=== PATIENT | male | born 2000 | race Caucasian/White ===

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

== ENCOUNTER 2022-05-28 09:31 | Emergency (ER) | payer OTHER, SELFPAY ==
[2022-05-28 11:05] VITALS: BP 141/90; PULSE 101; RESP 18; TEMP 36.8; O2SAT 98; BMI 26.1
--- NOTE | 2022-05-28 11:13 | EXP.UTC ---
Discharge Plan Disposition Patient Disposition: Home, Self-Care Condition: Good Prescriptions Prescriptions: New benzonatate 100 mg capsule 100 mg PO TID PRN (Reason: cough) Qty: 30 0RF azithromycin [Zithromax Z-Rip] 250 mg tablet See Rx Instructions .ROUTE .COMPLEX 5 Days Qty: 6 0RF Rx Instructions: For 250 mg dose pack: take 500 mg today (day 1), then 250 mg for 4 days (days 2-5) prednisone [prednisone] 20 mg tablet 20 mg PO BID 5 Days Qty: 10 0RF albuterol sulfate [Proventil HFA] 90 mcg/actuation HFA aerosol inhaler 1 inh inhalation Q6H PRN (Reason: shortness of breath or wheezing) Qty: 8.5 0RF Referrals Follow up/Referrals: Sandra Fernandez APRN [Primary Care Provider] - See instructions Activity Restrictions/Add. Instructions Additional Instructions/Restrictions: Start antibiotic today. Be sure to complete entire prescription even if feeling better Monitor temp. Tylenol every 4 hours as needed and / or ibuprofen every 6 hours as needed ( As long as your primary care physician has told you that it ok to take both. For fever/aches/pains ER if no less than 101 despite Tylenol or Motrin Humidifier/vaporizer or hot steamy shower Inhaler every 4-6 hours as needed like we discussed. If unsure how to use it, ask pharmacist to demonstrate how. Should help open airways and improve cough, wheezing, and shortness of breath *Tessalon Perles will not cause drowsiness but use at bedtime to help stop cough so that you may get some rest. *Start steroid today. Helps with inflammation therefore, cough and wheezing. Follow directions on the package. Reviewed side effects. Patient reports taking them before. Follow up IMMEDIATELY for new or worsening of symptoms OR no noticeable improvement over the next 48-72 hours. 911 immediately for any life threatening symptoms such as chest pain or difficulty breathing Clinical Impressions Clinical Impression: Bronchitis Sinusitis Qualifiers: Sinusitis location: unspecified location Chronicity: unspecified Qualified Code(s): J32.9 - Chronic sinusitis, unspecified Stand Alone Forms Stand Alone Forms: Work/School Release Instructions Patient Instructions: DI for Sinusitis, Sinusitis, Acute Bronchitis Discharge ED Provider: Emy Rosado [facility] HPI General Stated complaint: Cough, SOA Time Seen by Provider: 05/28/22 11:13 History of Present Illness Provider Complaint: Patient states that he has been having cough, sinus congestion and pressure, scratchy chest and felt SOA at times after coughing episode state that he is not coughing anything up but he has pressure behind his eyes and feels like he has drainage in the back of his throat Related Data Previous Rx's Medication Instructions Recorded albuterol sulfate 90 mcg/actuation 1 inh inhalation Q6H PRN shortness 05/28/22 aerosol inhaler (Proventil HFA) of breath or wheezing #8.5 grams azithromycin 250 mg tablet See Rx Instructions PO .COMPLEX 5 05/28/22 (Zithromax Z-Rip) days #6 tabs benzonatate 100 mg capsule 100 mg PO TID PRN cough #30 caps 05/28/22 prednisone 20 mg tablet 20 mg PO BID 5 days #10 tabs 05/28/22 Allergies Allergy/AdvReac Type Severity Reaction Status Date / Time cefdinir [CEFDINIR] Allergy Mild Verified 05/28/22 11:17 PFSH PFSH Medical History (Updated 05/28/22 @ 11:23 by Emy Rosado APRN) Anxiety Asthma Depression Social History (Updated 05/28/22 @ 11:17 by Airam Swanson RN) Smoking Status: Current every day smoker alcohol intake: never substance use type: marijuana (recently has been daily) current occupational status: employed Travel in the last 8 weeks: None number of children: 0 ROS Obtained: Yes All systems reviewed & no additional complaints except as documented and Yes Systems reviewed as appropriate & no additional complaints except as documented Constitutional Constitutional: Reports system rev
[2022-05-28 11:28] LABS: UTC Influenza A Antigen Negative (Negative); UTC Influenza B Antigen Negative (Negative)
[2022-05-28 11:32] VITALS: BP 141/90; PULSE 101; RESP 18; TEMP 36.8; O2SAT 98
== END 2022-05-28 11:37 | disposition home or self-care (01) ==
PROVIDERS: Emergency Provider Nurse Practitioner; PCP Nurse Practitioner Family
DX: J40 Bronchitis, not specified as acute or chronic (principal); J32.9 Chronic sinusitis, unspecified
CPT/HCPCS: 87804; 99212; C9803; G0463; U0003; U0005

== ENCOUNTER 2022-06-02 09:56 | Emergency (ER) | payer OTHER, SELFPAY ==
[2022-06-02 09:56] VITALS: BP 146/93; PULSE 88; RESP 16; TEMP 36.8; O2SAT 99; BMI 25.8
[2022-06-02 10:13] VITALS: BP 146/93; PULSE 73; O2SAT 98
[2022-06-02 10:30] VITALS: BP 155/101; PULSE 85; O2SAT 99
--- NOTE | 2022-06-02 10:34 | CT_ITS ---
FINAL REPORT CLINICAL HISTORY: headache, vomiting FINDINGS: Axial images of the head were obtained without contrast. Coronal reformatted images were also obtained.This study was performed with techniques to keep radiation doses as low as reasonably achievable (ALARA). Individualized dose reduction techniques using automated exposure control or adjustment of mA and/or kV according to the patient's size were employed. There is no evidence of intracranial hemorrhage or mass. The ventricular size is within normal limits. There is no evidence of shift of the midline structures. No abnormal extra axial fluid collection is identified. No skull abnormality is seen on the bone window images. There is mucosal thickening of the maxillary sinuses and ethmoid air cells. IMPRESSION: No acute intracranial abnormality. Sinusitis as above. Reviewed, Interpreted and Dictated by Vikas Wade III, MD Transcribed by Payal Pennington Authenticated and [facility]
--- NOTE | 2022-06-02 10:36 | HMH.EDGENADL ---
Discharge Plan Disposition Patient Disposition: Home, Self-Care Condition: Good Prescriptions Prescriptions: New amoxicillin-pot clavulanate [Augmentin] 500-125 mg tablet 1 tab PO Q8H Qty: 30 0RF ondansetron 4 mg tablet,disintegrating 4 mg PO Q8H PRN (Reason: nausea and vomiting) Qty: 10 0RF No Action benzonatate 100 mg capsule 100 mg PO TID PRN (Reason: cough) Qty: 30 0RF azithromycin [Zithromax Z-Rip] 250 mg tablet See Rx Instructions .ROUTE .COMPLEX 5 Days Qty: 6 0RF Rx Instructions: For 250 mg dose pack: take 500 mg today (day 1), then 250 mg for 4 days (days 2-5) prednisone [prednisone] 20 mg tablet 20 mg PO BID 5 Days Qty: 10 0RF albuterol sulfate [Proventil HFA] 90 mcg/actuation HFA aerosol inhaler 1 inh inhalation Q6H PRN (Reason: shortness of breath or wheezing) Qty: 8.5 0RF Referrals Follow up/Referrals: Clarence Maynard MD [Primary Care Provider] - See instructions Activity Restrictions/Add. Instructions Additional Instructions/Restrictions: Augmentin as prescribed. Zofran as needed for nausea. Return to the emergency department if severe headache or vomiting recurs. Additional instructions for HEADACHE: See your physician as soon as possible for further evaluation. Return immediately if worsening headache, vomiting, problems with vision or speech, fever, numbness or weakness of the extremities, neck pain or stiffness. Clinical Impressions Clinical Impression: Sinusitis, Headache, Vomiting Instructions Patient Instructions: DI for Nausea -- Adult, DI for Sinusitis, DI for Headache Discharge ED Provider: Matthias Galeana General Adult HPI General Chief complaint: Nausea/Vomiting/Diarrhea Stated complaint: LOWRY, vomiting Time Seen by Provider: 06/02/22 10:30 Mode of Arrival: Ambulatory Limitations: No Limitations Description of Symptoms (Recalled from ER Triage Doc. by RN): pt advises he woke up this am with nausea, vomiting, headache, body aches. History of Present Illness HPI narrative: Patient states that shortly after he awakened this morning he had onset of a headache on the top of his head. Multiple episodes of vomiting. Denies diarrhea or abdominal pain. Denies fever. Denies visual disturbance or numbness or weakness. Denies neck pain or stiffness. No history of severe headaches, no history of migraines. Recently seen at the urgent treatment center for bronchitis. States that yesterday he felt great, symptoms had apparently resolved and when he went to bed last night he felt good. Related Data Previous Rx's Medication Instructions Recorded albuterol sulfate 90 mcg/actuation 1 inh inhalation Q6H PRN shortness 05/28/22 aerosol inhaler (Proventil HFA) of breath or wheezing #8.5 grams azithromycin 250 mg tablet See Rx Instructions PO .COMPLEX 5 05/28/22 (Zithromax Z-Rip) days #6 tabs benzonatate 100 mg capsule 100 mg PO TID PRN cough #30 caps 05/28/22 prednisone 20 mg tablet 20 mg PO BID 5 days #10 tabs 05/28/22 amoxicillin 500 mg-potassium 1 tab PO Q8H #30 tabs 06/02/22 clavulanate 125 mg tablet (Augmentin) ondansetron 4 mg disintegrating 4 mg PO Q8H PRN nausea and 06/02/22 tablet vomiting #10 tabs Allergies Allergy/AdvReac Type Severity Reaction Status Date / Time cefdinir [CEFDINIR] Allergy Mild Verified 06/02/22 10:23 [facility] [place] Medical History (Updated 06/02/22 @ 12:40 by Matthias Galeana MD) Anxiety Asthma Depression Social History Smoking Status: Current every day smoker alcohol intake: never substance use type: marijuana (recently has been daily) current occupational status: employed Travel in the last 8 weeks: None number of children: 0 ROS Obtained: Yes Systems reviewed as appropriate & no additional complaints except as documented Constitutional Constitutional: Denies fever(s), Reports headache(s) and Denies weakness ENT Ears, Nose, Mout
[2022-06-02 11:00] VITALS: BP 130/87; PULSE 79; O2SAT 95
[2022-06-02 11:03] LABS: Basophils # 0.1 K/mm3 (0-0.2); Basophils % 1.1 % (0.1-2.0); Eosinophils # 0.1 K/mm3 (0.0-0.4); Eosinophils % 0.9 % (0.1-12.0); Hematocrit 50.3 % (42.0-52.0); Hemoglobin 16.9 g/dL (14.1-18.0); Lymphocytes # 1.1 K/mm3 (0.7-4.5); Lymphocytes % 8.1 % (10-50); Mean Corpuscular HGB Conc 33.7 g/dL (31.8-35.4); Mean Corpuscular Hemoglobin 28.9 pg (27.0-31.2); Mean Corpuscular Volume 85.7 fl (80-94); Mean Platelet Volume 7.2 fl (7.4-10.4); Monocytes # 0.5 K/mm3 (0.1-1.0); Neutrophils # 11.3 K/mm3 (1.8-7.8); Neutrophils % 85.9 % (37.0-80.0); Platelet Count 391 K/mm3 (142-424); Red Blood Count 5.87 M/mm3 (4.60-6.20); Red Cell Distribution Width 13.1 % (11.5-17.5); White Blood Count 13.1 K/mm3 (4.8-10.8)
[2022-06-02 11:05] LABS: MANUAL DIFFERENTIAL MANUAL DIFFERENTIAL (MANUAL DIFF)
[2022-06-02 11:06] LABS: Chloride 100 mmol/L (98-107); Potassium 4.1 mmoL/L (3.5-5.1); Sodium 141 mmol/L (136-145)
[2022-06-02 11:08] LABS: Blood Urea Nitrogen 10 mg/dl (9-20); Creatinine Clearance Estimated 140 mL/min (50-200); Estimated Glomerular Filt Rate 106 ml/min (>60); GFR (African American) 128 ML/MIN (>60)
[2022-06-02 11:09] LABS: Alanine Aminotransferase 26 U/L (12-78); Albumin Level 4.4 g/dl (3.5-5.0); Albumin/Globulin Ratio 1.4 (1.1-1.8); Alkaline Phosphatase 90 U/L (38-126); Anion Gap 16.1 mEq/L (5-15); Aspartate Amino Transferase 37 U/L (17-59); Bilirubin,Total 0.6 mg/dl (0.2-1.3); Calcium 9.8 mg/dl (8.4-10.2); Carbon Dioxide 29 mmol/L (22.0-30.0); Globulin 3.2 g/dL (1.3-3.2); Glucose 104 mg/dl (74-100); Total Protein,Serum 7.6 g/dl (6.3-8.2)
[2022-06-02 11:20] LABS: Eosinophils % 1 % (0-3); Lymphocytes % 11 % (10-50); Monocytes % 2 % (2-9); Neutrophils % 85 % (42-76); Platelet Estimate Normal; RBC Morphology Normal; Total Cells Counted 100
--- NOTE | 2022-06-02 11:30 | PC.NURSE ---
Rounded on pt at this time and swab obtained. Pt advised the medicine had helped some. No new needs at this time.
[2022-06-02 11:37] LABS: Coronavirus 19, PCR Not Detected (NotDetected); Influenza A, PCR Not Detected (NotDetected); Influenza B, PCR Not Detected (NotDetected)
--- NOTE | 2022-06-02 11:57 | INFXCTL.NOTE ---
contacted rad to check on status of CT result, staff states there is one scan ahead of this pts to be read.
[2022-06-02 12:49] VITALS: BP 128/70; PULSE 76; RESP 16; TEMP 36.7; O2SAT 98
== END 2022-06-02 12:50 | disposition home or self-care (01) ==
PROVIDERS: Emergency Provider Emergency Medicine; PCP Internal Medicine Adolescent Medicine
DX: R06.02 Shortness of breath (principal); R05.9 Cough, unspecified; R51.9 Headache, unspecified; R11.2 Nausea with vomiting, unspecified; R19.7 Diarrhea, unspecified; Z20.822 Contact with and (suspected) exposure to COVID-19; F32.A Depression, unspecified; F41.9 Anxiety disorder, unspecified; F17.200 Nicotine dependence, unspecified, uncomplicated; Z79.51 Long term (current) use of inhaled steroids; Z79.52 Long term (current) use of systemic steroids; Z79.899 Other long term (current) drug therapy; Z88.8 Allergy status to other drugs, medicaments and biological substances
CPT/HCPCS: 70450; 80053; 85007; 85025; 96361; 96374; 96375; 99285; C9803; U0003; U0005

== ENCOUNTER 2022-07-10 01:28 | Emergency (ER) | payer OTHER, SELFPAY ==
[2022-07-10 01:28] VITALS: BP 140/90; PULSE 85; RESP 18; TEMP 36.8; O2SAT 99; BMI 25.8
--- NOTE | 2022-07-10 01:43 | HMH.EDABDPAI ---
Discharge Plan Disposition Patient Disposition: Home, Self-Care Condition: Good Prescriptions Prescriptions: New ondansetron 4 mg tablet,disintegrating 4 mg PO Q8H PRN (Reason: nausea and vomiting) 1 Days Qty: 30 0RF cefdinir 300 mg capsule 300 mg PO BID 10 Days Qty: 20 0RF No Action benzonatate 100 mg capsule 100 mg PO TID PRN (Reason: cough) Qty: 30 0RF azithromycin [Zithromax Z-Rip] 250 mg tablet See Rx Instructions .ROUTE .COMPLEX 5 Days Qty: 6 0RF Rx Instructions: For 250 mg dose pack: take 500 mg today (day 1), then 250 mg for 4 days (days 2-5) prednisone [prednisone] 20 mg tablet 20 mg PO BID 5 Days Qty: 10 0RF albuterol sulfate [Proventil HFA] 90 mcg/actuation HFA aerosol inhaler 1 inh inhalation Q6H PRN (Reason: shortness of breath or wheezing) Qty: 8.5 0RF amoxicillin-pot clavulanate [Augmentin] 500-125 mg tablet 1 tab PO Q8H Qty: 30 0RF ondansetron 4 mg tablet,disintegrating 4 mg PO Q8H PRN (Reason: nausea and vomiting) Qty: 10 0RF Referrals Follow up/Referrals: Clarence Maynard MD [Primary Care Provider] - See instructions Activity Restrictions/Add. Instructions Additional Instructions/Restrictions: Please follow up with your primary care physician in 2-3 days for re-evaluation. You are being treated with antibiotics for possible UTI, however symptoms are likely secondary to constipation caused by viral gastroenteritis. Please take zofran as prescribed. Please drink plenty of water. May also use over the counter stool softeners until you have normal bowel movement. If abdominal distension, inability to have bowel movement, worsening pain, or any other concerns return to ED. If symptoms don't improve or worsen may require CT scan. Clinical Impressions Clinical Impression: Gastroenteritis and colitis, viral, Constipation Instructions Patient Instructions: Constipation, Viral Gastroenteritis Print Language Print Language: German Discharge ED Provider: Prisca Estevez Abdominal Pain HPI General Stated Complaint: lower abdominal pain Time Seen by Provider: 07/10/22 01:44 Mode of Arrival: Ambulatory Source of Information: Patient Limitations: No Limitations History of Present Illness HPI narrative: Mr. Moraels is a 21 yo male presenting to the ED for generalized abdominal pain and diarrhea. Patient reports symptoms onset 2d prior. Also reports non bloody diarrhea on D1 which has since resolved. Now he reports constipation and no bowel movement since yesterday. Still passing flatulence. Denies any bloody stools. No dysuria, hematuria or urgency. No emesis, but reports nausea. No penile or scrotal pain. No cough, fevers or other infectious symptoms. No sick contacts. MD complaint: abdominal pain Onset (ago): day(s) Consistency: constant Location: periumbilical Severity: moderate Severity scale (1-10): 7 Quality: cramping Migration to: no migration Relieving factors: nothing Exacerbating factors: nothing Associated symptoms: nausea and diarrhea Related Data Previous Rx's Medication Instructions Recorded albuterol sulfate 90 mcg/actuation 1 inh inhalation Q6H PRN shortness 05/28/22 aerosol inhaler (Proventil HFA) of breath or wheezing #8.5 grams azithromycin 250 mg tablet See Rx Instructions PO .COMPLEX 5 05/28/22 (Zithromax Z-Rip) days #6 tabs benzonatate 100 mg capsule 100 mg PO TID PRN cough #30 caps 05/28/22 prednisone 20 mg tablet 20 mg PO BID 5 days #10 tabs 05/28/22 amoxicillin 500 mg-potassium 1 tab PO Q8H #30 tabs 06/02/22 clavulanate 125 mg tablet (Augmentin) ondansetron 4 mg disintegrating 4 mg PO Q8H PRN nausea and 06/02/22 tablet vomiting #10 tabs cefdinir 300 mg capsule 300 mg PO BID 10 days #20 caps 07/10/22 ondansetron 4 mg disintegrating 4 mg PO Q8H PRN nausea and 07/10/22 tablet vomiting 24 hours #30 tabs Allergies Allergy/AdvReac Type Severity Reaction Status Date / Time cefdinir [CEFDINIR] Allergy Mild Verified
[2022-07-10 01:47] LABS: Microscopic, Urine URINE MICROSCOPIC (MICROSCOPIC)
[2022-07-10 01:53] LABS: Appearance,Urine CLEAR (Clear); Blood, Urine 1+ (Negative); Color,Urine YELLOW (Yellow); Glucose,Urine (UA) Negative (Negative); Ketones,Urine Negative (Negative); Leukocyte Esterase,Urine Negative (Negative); Nitrate,Urine Negative (Negative); PH,Urine 5.5 (5.0-8.5); Protein,Urine TRACE (Negative); Specific Gravity, Urine >= 1.030 (1.005-1.030)
[2022-07-10 02:00] LABS: Bilirubin,Urine Negative (Negative)
[2022-07-10 02:03] LABS: Alanine Aminotransferase 24 U/L (12-78); Albumin Level 4.9 g/dl (3.5-5.0); Albumin/Globulin Ratio 1.5 (1.1-1.8); Alkaline Phosphatase 75 U/L (38-126); Anion Gap 14.7 mEq/L (5-15); Aspartate Amino Transferase 31 U/L (17-59); Bilirubin,Total 1.1 mg/dl (0.2-1.3); Blood Urea Nitrogen 14 mg/dl (9-20); Calcium 9.1 mg/dl (8.4-10.2); Carbon Dioxide 27 mmol/L (22.0-30.0); Chloride 100 mmol/L (98-107); Estimated Glomerular Filt Rate 84 ml/min (>60); GFR (African American) 101 ML/MIN (>60); Globulin 3.2 g/dL (1.3-3.2); Glucose 115 mg/dl (74-100); Lipase 69 U/L (23-300); Potassium 3.7 mmoL/L (3.5-5.1); Sodium 138 mmol/L (136-145); Total Protein,Serum 8.1 g/dl (6.3-8.2)
[2022-07-10 02:11] LABS: Basophils # 0.1 K/mm3 (0-0.2); Eosinophils # 0.1 K/mm3 (0.0-0.4); Eosinophils % 1.6 % (0.1-12.0); Hematocrit 51.5 % (42.0-52.0); Hemoglobin 17.2 g/dL (14.1-18.0); Lymphocytes # 0.8 K/mm3 (0.7-4.5); Lymphocytes % 16.7 % (10-50); Mean Corpuscular HGB Conc 33.4 g/dL (31.8-35.4); Mean Corpuscular Hemoglobin 29.3 pg (27.0-31.2); Mean Corpuscular Volume 87.8 fl (80-94); Mean Platelet Volume 7.7 fl (7.4-10.4); Monocytes # 0.5 K/mm3 (0.1-1.0); Monocytes % 11.7 % (1.7-9.3); Neutrophils # 3.1 K/mm3 (1.8-7.8); Neutrophils % 67.1 % (37.0-80.0); Platelet Count 286 K/mm3 (142-424); Red Blood Count 5.87 M/mm3 (4.60-6.20); Red Cell Distribution Width 12.9 % (11.5-17.5); White Blood Count 4.6 K/mm3 (4.8-10.8)
[2022-07-10 02:11] LABS: Bacteria,Urine 1+ /lpf; Mucus,Urine 1+ /lpf; Sperm,Urine OCC /lpf; Squamous Epithelial Cell,Urine Occasional #/hpf (0-5); WBC,Urine Occasional #/hpf (0-3)
[2022-07-10 03:21] VITALS: BP 102/55; PULSE 96; RESP 18; TEMP 36.7; O2SAT 96
== END 2022-07-10 03:26 | disposition home or self-care (01) ==
PROVIDERS: Emergency Provider Student in an Organized Health Care Education/Training Program; PCP Internal Medicine Adolescent Medicine
DX: R10.84 Generalized abdominal pain (principal); R19.7 Diarrhea, unspecified; R06.02 Shortness of breath; R11.2 Nausea with vomiting, unspecified; R05.9 Cough, unspecified; F17.200 Nicotine dependence, unspecified, uncomplicated; Z79.51 Long term (current) use of inhaled steroids; Z79.52 Long term (current) use of systemic steroids; Z79.899 Other long term (current) drug therapy; Z88.8 Allergy status to other drugs, medicaments and biological substances
CPT/HCPCS: 80053; 81001; 83690; 85025; 99283

== ENCOUNTER 2022-11-04 19:30 | Emergency (ER) | payer OTHER, SELFPAY ==
[2022-11-04 19:52] VITALS: BP 157/104; PULSE 98; RESP 20; TEMP 36.6; O2SAT 99; BMI 27.3
--- NOTE | 2022-11-04 19:58 | EXP.UTC ---
Discharge Plan Disposition Patient Disposition: Home, Self-Care Condition: Good Prescriptions Prescriptions: New doxycycline monohydrate 100 mg capsule 100 mg PO BID 10 Days Qty: 20 0RF Referrals Follow up/Referrals: Clarence Maynard MD [Primary Care Provider] - See instructions Clinical Impressions Clinical Impression: Acute epididymitis Stand Alone Forms Stand Alone Forms: Work/School Release Instructions Patient Instructions: DI for Urinary Tract Infection (UTI), DI for Urinary Tract Infection in Children Discharge ED Provider: Pedro Luis William [facility] [place] General Chief complaint: Urogenital-Male Stated complaint: Testicular pain Mode of Arrival: Ambulatory Source of Information: Patient Limitations: No Limitations Time Seen by Provider: 11/04/22 19:34 HEENT Symptoms (Recalled from RN notes): No Resp Symptoms (Recalled from RN notes): No Skin Symptoms (Recalled from RN notes): No MS Symptoms (Recalled from RN notes): No Functional Status (Recalled from RN notes): wnl History of Present Illness Provider Complaint: pt c/o throbbing, tight, squeezing testicular pain x3 days. pt states the first day it was primarily the L testicle and now is primarily the R. pain is worse in the morning and at night. pain 7/10 Related Data Previous Rx's Medication Instructions Recorded doxycycline monohydrate 100 mg 100 mg PO BID 10 days #20 caps 11/04/22 capsule Allergies Allergy/AdvReac Type Severity Reaction Status Date / Time cefdinir [CEFDINIR] Allergy Mild Verified 11/04/22 19:57 Worker's Comp Is this a Worker's Comp case?: No [facility] Disclaimer: The information contained in this section may have been updated after the patient was seen, as this information can be updated by other users. Medical History Anxiety Asthma Depression Social History Smoking Status: Current every day smoker alcohol intake: never substance use type: marijuana (recently has been daily) current occupational status: employed Travel in the last 8 weeks: None number of children: 0 ROS Obtained: Yes All systems reviewed & no additional complaints except as documented Constitutional Constitutional: Denies chills and Denies fever(s) Eyes Eyes: Denies eye discharge ENT Ears, Nose, Mouth, and Throat: Denies dizziness, Denies otalgia and Denies sore throat Cardiovascular Cardiovascular: Denies chest pain Respiratory Respiratory: Denies shortness of breath, Denies chest congestion, Denies cough, Denies stridor and Denies wheezing Gastrointestinal Gastrointestingal: Denies nausea or vomiting Genitourinary Male Genitourinary: Reports as per HPI Musculoskeletal Musculoskeletal: Reports system reviewed and no additional complaints, except as documented and Denies arthralgias Integumentary/Breasts Skin/Breast: Denies rash Neurologic Neurologic: Denies dizziness and Denies paresthesias Allergic/Immunologic Allergic/Immunologic: Denies wheezing Physical Exam General General appearance: alert and in no apparent distress Head Head exam: atraumatic, normocephalic and normal inspection Eye Eye exam: Present normal appearance, PERRL and EOMI ENT ENT exam: Present normal exam, normal oropharynx, mucous membranes moist, TM's normal bilaterally and normal external ear exam Neck Neck exam: Present normal inspection, full ROM and trachea midline; Absent meningismus or lymphadenopathy Chest Chest inspection: Present normal inspection and symmetric chest wall rise; Absent tenderness Respiratory Respiratory exam: Present normal lung sounds bilaterally; Absent respiratory distress Cardiovascular Cardiovascular exam: Present regular rate and normal rhythm; Absent JVD Abdominal Exam Abdominal exam: Present soft and normal bowel sounds; Absent distention, tenderness or guarding Extremities Exam Extremities exam: Present norm
[2022-11-04 20:10] VITALS: BP 148/102; PULSE 88; RESP 18; TEMP 36.8; O2SAT 100; BMI 27.3
--- NOTE | 2022-11-04 21:36 | HMH.EDUROGM ---
Discharge Plan Disposition Patient Disposition: Home, Self-Care Prescriptions Prescriptions: New doxycycline monohydrate 100 mg capsule 100 mg PO BID 10 Days Qty: 20 0RF Referrals Follow up/Referrals: Clarence Maynard MD [Primary Care Provider] - See instructions Clinical Impressions Clinical Impression: Acute epididymitis Instructions Patient Instructions: DI for Urinary Tract Infection (UTI), DI for Urinary Tract Infection in Children Discharge ED Provider: Pedro Luis William Urogenital HPI General Chief complaint: Urogenital-Male Stated complaint: Testicular pain Time Seen by Provider: 11/04/22 19:34 Mode of Arrival: Ambulatory Source of Information: Patient Limitations: No Limitations Description of Symptoms (Recalled from ER Triage Doc. by RN): Pt states he has been having testicular pain for the past 2 days. Denies any redness or swelling. States it started in his left testicle and has now moved to the right. No N/V/D, rates pain at this time 3/10 History of Present Illness HPI Narrative: 22-year-old white male presents with testicular pain. Patient notes that if he wears a little tighter undergarments and present prevents as much moving of the testicles he is more comfortable. He has had no fevers or systemic symptoms. The duration of the symptoms have been about 2 days. He reports he has allergy to Omnicef no other medical problems Related Data Previous Rx's Medication Instructions Recorded doxycycline monohydrate 100 mg 100 mg PO BID 10 days #20 caps 11/04/22 capsule Allergies Allergy/AdvReac Type Severity Reaction Status Date / Time cefdinir [CEFDINIR] Allergy Mild Verified 11/04/22 19:57 [facility] Disclaimer: The information contained in this section may have been updated after the patient was seen, as this information can be updated by other users. Medical History Anxiety Asthma Depression Social History Smoking Status: Current every day smoker alcohol intake: never substance use type: marijuana (recently has been daily) current occupational status: employed Travel in the last 8 weeks: None number of children: 0 ROS Obtained: Yes All systems reviewed & no additional complaints except as documented Physical Exam General General appearance: alert and in no apparent distress Head Head exam: atraumatic and normocephalic Eye Eye exam: Present normal appearance Neck Neck exam: Present normal inspection Respiratory Respiratory exam: Present normal lung sounds bilaterally Cardiovascular Cardiovascular exam: Present regular rate and normal rhythm Abdominal Exam Abdominal exam: Present soft; Absent distention or tenderness exam: Present testicular tenderness (He is tender over right epididymis. The testicles are neither swollen nor retracted.) Neurological Exam Neurological exam: Present alert, oriented X3 and CN II-XII intact Medical Decision Making Medical Records MR Comment: 22-year-old white male presents with 2-day history of testicular pain. He has had no fever or systemic symptoms. His testicles revealed right epididymitis. The patient will be treated with doxycycline 100 mg p.o. twice daily with first dose administered in the emergency room tonight. He is to follow-up with his primary care provider and ascertain that the symptoms have completely cleared. All questions are answered no barriers to his care are identified at this time. Kike Inquiry Pt receiving controlled substance: No Kike was queried for this patient: No Vital Signs: 11/04/22 19:52 11/04/22 20:10 Temperature 98 F 98.3 F Temperature Source Oral Oral Pulse Rate [Left] 98 H 88 Respiratory Rate 20 18 Blood Pressure [Right Arm] 157/104 H 148/102 H Blood Pressure Mean [Right Arm] 121 117 Blood Pressure Source [Right Arm] Automatic Cuff Automatic Cuff Blood P
[2022-11-04 21:52] VITALS: BP 150/89; PULSE 80; RESP 16; TEMP 36.6; O2SAT 98
== END 2022-11-04 21:55 | disposition home or self-care (01) ==
LOC: UTC 19:37 → ER 20:05
PROVIDERS: Emergency Provider Emergency Medicine; PCP Internal Medicine Adolescent Medicine
DX: N45.1 Epididymitis (principal); F17.200 Nicotine dependence, unspecified, uncomplicated
CPT/HCPCS: 99283; 99284